=== PATIENT | female | born 1960 | race Caucasian/White ===

== ENCOUNTER 2025-03-18 02:47 | Emergency (ER) | payer OTHER, MEDICARE, MEDICAID ==
[~2025-03-18] VITALS: Ht 172.7 cm; Wt 81.0 kg
[2025-03-18 02:53] VITALS: TEMP 37.1; O2SAT 98
[2025-03-18] MEDS: LIDOCAINE 5% PATCH TOP SCH (03:30)
[2025-03-18] MEDS: ACETAMINOPHEN 325MG TABLET PO ONE (03:51)
[2025-03-18] MEDS ORDERED: LIDO-53 TP (04:11)
[2025-03-18] MEDS ORDERED: NAPR-1176 MT (04:11)
[2025-03-18 05:09] VITALS: BP 198/94; PULSE 75; RESP 18; O2SAT 99
== END 2025-03-18 05:14 | disposition home or self-care (01) ==
LOC: ER 03:33
DX: G44.309 Post-traumatic headache, unspecified, not intractable (principal); Z79.1 Long term (current) use of non-steroidal anti-inflammatories (NSAID); V47.5XXA Car driver injured in collision with fixed or stationary object in traffic accident, initial encounter; W22.01XA Walked into wall, initial encounter; Y92.410 Unspecified street and highway as the place of occurrence of the external cause; Y93.89 Activity, other specified; Y99.8 Other external cause status
CPT/HCPCS: 99283